=== PATIENT | male | born 1990 ===

== ENCOUNTER 2017-03-13 12:22 | Emergency (ER) | payer OTHER ==
[~2017-03-13] VITALS: Ht 152.4 cm; Wt 86.8 kg
[2017-03-13 12:26] VITALS: Ht 152.4 cm; Wt 86.8 kg
--- NOTE | 2017-03-13 13:01 | ERD ---
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 HPI 26-year-old male states that he has had a low-grade fever for the past week as well as cough congestion runny nose. Patient has had yellow colored sputum at times, but no hemoptysis, no chest pain or shortness of breath. ROS All systems reviewed and are negative except as per history of present illness. Medications Home Meds Active Scripts Ibuprofen* (Motrin*) 600 Mg Tab, 600 MG PO Q6, #30 TAB Prov:WILLIAM PALMA PA-C 03/13/17 Azithromycin* (Zithromax*) 250 Mg Tablet, 250 MG PO .ZPACK DIRECTED, #6 TAB TAKE 500 MG (2 TABS) THE FIRST DAY THEN 250 MG (1 TAB) DAYS 2-5 Prov:WILLIAM PALMA PA-C 03/13/17 Physical Exam Vitals Vital Signs Date Time Temp Pulse Resp B/P Pulse Ox O2 Delivery O2 Flow Rate FiO2 03/13/17 12:26 98.7 93 16 118/68 100 Physical Exam General: Well-developed, well-nourished. The patient appears in no acute distress. HEENT: Head is normocephalic, atraumatic. No scleral icterus. TMs normal, oropharynx is clear. Neck: Supple. Nontender. Lungs: Clear to auscultation. Normal air movement. Heart: Regular rate and rhythm. S1 and S2 are normal. No murmurs, gallops, or rubs. Abdomen: Nondistended. Extremities: No clubbing or cyanosis. Moving extremities x 4. No weakness. Neurologic: Alert and oriented 3. No focal deficits. Normal speech and gait. Skin: Normal turgor. No rash or lesions. Results 24 hrs DIAGNOSTIC IMAGING REPORT Patient: FABIEN REILLY : 1990 Age: 26 Sex: M MR #: [id number] DOS: 03/13/17 1252 Ordering MD: WILLIAM PALMA PA-C Location: [facility] Room/Bed: PROCEDURE: XR Chest. CLINICAL INDICATION: Cough TECHNIQUE: A single AP view of the chest was obtained. COMPARISON: None. FINDINGS: Lung volumes are low. There left lower lobe alveolar opacities. No pleural effusion or pneumothorax is seen. The cardiomediastinal silhouette is within normal limits for size. The osseous structures are unremarkable. IMPRESSION: Left lower lobe pneumonia. RPTAT: HH .Charito Virk MD, MD Date Time Electronically viewed and signed by .Charito Virk MD, MD on 03/13/2017 13 :44 .G/ CC: WILLIAM PALMA PA-C Procedures/MDM 6-year-old male has a history of cough and fever for a week, chest x-ray shows left lower lobe pneumonia. The patient is otherwise healthy, nontoxic appearing , no signs of sepsis or hypoxia. Patient is appropriate to be discharged home with oral antibiotics. He is to recheck with his doctor in 1-2 days. Departure Diagnosis: Primary Impression: Pneumonia Condition: Good WILLIAM PALMA PA-C Mar 13, 2017 13:01
--- NOTE | 2017-03-13 13:44 | RADRPT ---
PROCEDURE: XR Chest. CLINICAL INDICATION: Cough TECHNIQUE: A single AP view of the chest was obtained. COMPARISON: None. FINDINGS: Lung volumes are low. There left lower lobe alveolar opacities. No pleural effusion or pneumothorax is seen. The cardiomediastinal silhouette is within normal limits for size. The osseous structures are unremarkable. IMPRESSION: Left lower lobe pneumonia. RPTAT: HH .Charito Virk MD, MD Date Time Electronically viewed and signed by .Charito Virk MD, MD on 03/13/2017 13:44 .G/
[2017-03-13] MEDS ORDERED: AZIT250T94 PO (14:04)
[2017-03-13] MEDS ORDERED: IBUP-1542 PO (14:04)
== END 2017-03-13 16:30 | disposition home or self-care (01) ==
LOC: FTE 12:22
DX: J18.9 Pneumonia, unspecified organism (principal)
CPT/HCPCS: 71010